=== PATIENT | male | born 1965 | race Caucasian/White ===

== ENCOUNTER 2024-04-18 09:59 | Emergency (ER) | payer MEDICAID ==
[~2024-04-18] VITALS: Ht 180.3 cm; Wt 75.0 kg
[~2024-04-18 09:59] MED LIST: DOXY100C5 MT; LEVO750T68 PO; SERT50TA PO; TOPUD PO
[2024-04-18 10:24] VITALS: BP 105/77; PULSE 94; RESP 12; TEMP 98.3; O2SAT 99
[2024-04-18] MEDS ORDERED: SERT-422 MT (11:26)
== END 2024-04-18 11:48 | disposition home or self-care (01) ==
LOC: ER 10:12
DX: Z76.0 Encounter for issue of repeat prescription (principal); Z79.899 Other long term (current) drug therapy; Z98.890 Other specified postprocedural states
CPT/HCPCS: 99281